=== PATIENT | male | born 1965 | race Caucasian/White ===

== ENCOUNTER 2016-09-17 13:08 | Inpatient (IN) | payer OTHER ==
[~2016-09-17] VITALS: Ht 195.6 cm; Wt 136.5 kg
[2016-09-17 13:53] VITALS: BP 151/91
--- NOTE | 2016-09-17 15:10 | NUR ---
Edwin lux in [facility] - 09/17/16 at 1511 by JUAN MANUEL Patient ambulated to bed 4 at this time.
--- NOTE | 2016-09-17 15:10 | NUR ---
Patient ambulated to bed 4 at this time.
--- NOTE | 2016-09-17 15:10 | NUR ---
Patient ambulated to bed 5 at this time.
--- NOTE | 2016-09-17 15:12 | NUR ---
51/M BIB SELF C/o redness swelling to left side of upper face cellulitis x 6 days pt visited dentist today, was told is not dental related. DENIES N/V/D; SKIN IS PINK/WARM/DRY; AAOX4 WITH EVEN AND STEADY GAIT; LUNGS CLEAR BL; HR EVEN AND REGULAR; PT DENIES ANY FEVER, CP, SOB, OR COUGH AT THIS TIME; PATIENT STATES PAIN OF 0/10 AT THIS TIME; VSS; PATIENT POSITIONED FOR COMFORT; HOB ELEVATED; BEDRAILS UP X2; BED DOWN. ER MD MADE AWARE OF PT STATUS.
--- NOTE | 2016-09-17 16:11 | NUR ---
ER MD DR GARCIA EVALUATING PT AT BEDSIDE.
[2016-09-17] MEDS ORDERED: cefTRIAXone 1,000 MG in DEXT 5% MINI-BAG PLUS 50 ML IV ONE (16:15)
[2016-09-17] MEDS ORDERED: NACL 0.9% 1,000 ML IV SCH (16:15)
--- NOTE | 2016-09-17 16:22 | NUR ---
X RAY AT BEDSIDE
[2016-09-17] MEDS ORDERED: cefTRIAXone 1,000 MG VIAL ONE (16:26)
--- NOTE | 2016-09-17 16:29 | NUR ---
EKG AT BEDSIDE
--- NOTE | 2016-09-17 16:36 | NUR ---
LAB AT BEDSIDE.
--- NOTE | 2016-09-17 16:36 | NUR ---
INSERTED IV CATH NO 20 LFA BY RN CA; PT TOLERATED PROCEDURE WELL. IV PATENT, INTACT.
--- NOTE | 2016-09-17 17:03 | NUR ---
PT C/O PAIN L BRANDYN 09/16; NOTIFIED ER MD DR GARCIA. Addendum: 09/17/16 at 1721 by [email or web address] ADMINISTERED MORPHINE 4 MG IV ORDER FOR PAIN.
[2016-09-17 17:05] LABS: BASOPHILS # (AUTO) 0.1 K/uL (0.00-0.22); BASOPHILS % (AUTO) 1.3 % (0.0-2.0); EOSINOPHILS # (AUTO) 0.1 K/uL (0-0.4); EOSINOPHILS % (AUTO) 1.6 % (0.0-4.0); HEMATOCRIT 44.3 % (36-52); HEMOGLOBIN 14.3 g/dL (12.0-18.0); LYMPHOCYTES # (AUTO) 1.1 K/uL (2.0-11.5); LYMPHOCYTES % (AUTO) 11.4 % (20.5-51.1); MEAN CORPUSCULAR HEMOGLOBIN 30 pg (27-31); MEAN CORPUSCULAR HGB CONC 32 g/dL (33-37); MEAN CORPUSCULAR VOLUME 92 fL (80-94); MONOCYTES # (AUTO) 0.7 K/uL (0.8-1.0); MONOCYTES % (AUTO) 7.5 % (1.7-9.3); NEUTROPHILS # (AUTO) 7.3 K/uL (1.8-7.7); NEUTROPHILS % (AUTO) 78.2 % (42.2-75.2); PLATELET COUNT (AUTO) 218 K/uL (140-450); RED BLOOD CELL COUNT(AUTO) 4.85 MIL/uL (4.20-6.10); RED CELL DISTRIBUTION WIDTH 13.2 % (11.6-13.7); WHITE BLOOD COUNT (AUTO) 9.3 K/uL (4.8-10.8)
[2016-09-17] MEDS ORDERED: MORPHINE SULFATE 4 MG/ML SYR IVP ONE (17:10)
[2016-09-17 17:11] LABS: ANION GAP 17.1 (8-16); CALCIUM 8.9 mg/dL (8.5-10.1); CARBON DIOXIDE 23.9 mmol/L (21-32); CREATININE 0.9 mg/dL (0.7-1.3)
[2016-09-17 17:16] LABS: PARTIAL THROMBOPLASTIN TIME 28.8 secs (22-35.6); PROTHROMBIN TIME 10.3 secs (10.8-13.4)
[2016-09-17 17:19] LABS: ALBUMIN 4.2 g/dL (3.4-5.0); LACTIC ACID 1.8 mmol/L (0.4-2.0); TOTAL BILIRUBIN 1.2 mg/dL (0.0-1.0)
--- NOTE | 2016-09-17 17:22 | NUR ---
L CHEEK PAIN 10.Patient appears to be resting comfortably in bed. Vital Signs within normal limits. Respirations even and unlabored. WILL CONTINUE TO MONITOR.
[2016-09-17] MEDS: NACL 0.9% 1,000 ML IV SCH (17:42)
[2016-09-17] MEDS ORDERED: ONDANSETRON 4 MG/2 ML VIAL IVP PRN (17:45)
[2016-09-17] MEDS ORDERED: ACETAMINOPHEN 325 MG TAB PO PRN (17:45)
[2016-09-17] MEDS ORDERED: MORPHINE SULFATE 4 MG/ML SYR IVP PRN (17:45)
[2016-09-17] MEDS ORDERED: MORPHINE SULFATE 2 MG/ML SYR IVP PRN (17:45)
--- NOTE | 2016-09-17 18:00 | NUR ---
DR ROSE EVALUATING PT AT BEDSIDE.
--- NOTE | 2016-09-17 18:12 | NUR ---
GAVE REPORT TO ANGLE RASHID.
--- NOTE | 2016-09-17 18:25 | NUR ---
PT CANT'T REMEMBER HOW MANY MG OG ZOLOFT & BACTRIM.
--- NOTE | 2016-09-17 18:26 | NUR ---
Patient will be admitted to care of DR EVERETT. Admited to MS. Will go to [id number]. Belongings list completed. Report to ANGLE RASHID.
--- NOTE | 2016-09-17 18:46 | NUR ---
RECEIVED REPORT FROM SABA BARBOUR, PT ARRIVED ON UNIT AWAKE AND ALERT, NO SIGNS OF ACUTE DISTRESS. BOWEL SOUNDS ACTIVE IN ALL 4 QUADRANTS. BOWEL AND BLADDER CONTINENCE. SKIN INTACT WITH LEFT FACE REDNESS. AMBULATORY WITH BRP. IV PATENT AND ASYMPTOMATIC. COMPLAINT OF PAIN 7/10 IN LEFT SIDE OF FACE, RECEIVED MORPHINE IN THE ER. BED IN LOW POSITION WITH BILATERAL HALF SIDE RAILS UP, CALL LIGHT WITHIN REACH. ORIENTED TO HOSPITAL AND UNIT, PT VERBALIZED UNDERSTANDING.
--- NOTE | 2016-09-17 19:15 | NUR ---
PT AWAKE AND ALERT, NO SIGNS OF ACUTE DISTRESS. ENDORSED TO PRIMARY OPERATOR NURSE FOR CONTINUITY OF CARE.
[2016-09-17 19:16] VITALS: BP 137/78
--- NOTE | 2016-09-17 19:16 | NUR ---
Admitted from ER TO [facility] , with chief complaint of SWELLING AND REDNESS OF LEFT SIDE OF FACE , 51 y/o ,Male, Cooperative, AWAKE, A/OX4. RESPIRATION EVEN AND UNLABORED, ABDOMEN SOFT, WITH POSITIVE BOWEL SOUNDS ON ALL QUADRANTS. STATED WITH SLIGHT DIFFICULTY SWALLOWING BUT ABLE TO SWALLOW WELL FOOD. AMBULATORY TO . HEAD TO TOE ASSESSMENT DONE WITH CHARGE NURSE PAOLA, SKIN INTACT. PAIN IN LEFT SIDE OF FACE 2/10, WILL MEDICATE ORDERED. oriented to call light, bed, phone,television, bathroom, smoking policy,visiting hours, procedures, ID bracelet on. Belongings list checked.
[2016-09-17 20:00] VITALS: BP 136/74
--- NOTE | 2016-09-17 20:00 | NUR ---
Patient's Plan of Care was discussed and reviewed with ACUTE COORDINATOR: KISHORE
[2016-09-17] MEDS ORDERED: CLINDAMYCIN 600 MG/4 ML VIAL ONE (21:13)
--- NOTE | 2016-09-17 21:30 | NUR ---
TRANSFERRED TO ROOM FOR ISOLATION, WITH HISTORY OF MRSA, WOUND.
[2016-09-17] MEDS: CLINDAMYCIN 600 MG in DEXTROSE 5% 50 ML IV SCH (21:36)
[2016-09-17] MEDS ORDERED: ZOLPIDEM 5 MG TAB PO PRN (23:25)
[2016-09-18] VITALS: BP 134/72
--- NOTE | 2016-09-18 | NUR ---
SLEEPING COMFORTABLY IN BED.
--- NOTE | 2016-09-18 03:00 | NUR ---
NO SIGNS OF DISCOMFORT NOTED. STILL SLEEPING IN BED.
[2016-09-18 04:52] VITALS: BP 120/75
[2016-09-18] MEDS: NACL 0.9% 1,000 ML IV SCH ×3 (05:21→23:42)
[2016-09-18] MEDS: CLINDAMYCIN 600 MG in DEXTROSE 5% 50 ML IV SCH ×3 (05:21→20:34)
[2016-09-18] MEDS ORDERED: CLINDAMYCIN 600 MG/4 ML VIAL ONE (05:23)
[2016-09-18 06:16] LABS: BASOPHILS # (AUTO) 0.1 K/uL (0.00-0.22); BASOPHILS % (AUTO) 1.8 % (0.0-2.0); EOSINOPHILS # (AUTO) 0.2 K/uL (0-0.4); EOSINOPHILS % (AUTO) 2.8 % (0.0-4.0); HEMATOCRIT 40.5 % (36-52); HEMOGLOBIN 13.3 g/dL (12.0-18.0); LYMPHOCYTES # (AUTO) 0.9 K/uL (2.0-11.5); LYMPHOCYTES % (AUTO) 16.4 % (20.5-51.1); MEAN CORPUSCULAR HEMOGLOBIN 30 pg (27-31); MEAN CORPUSCULAR HGB CONC 33 g/dL (33-37); MEAN CORPUSCULAR VOLUME 92 fL (80-94); MONOCYTES # (AUTO) 0.7 K/uL (0.8-1.0); MONOCYTES % (AUTO) 11.6 % (1.7-9.3); NEUTROPHILS # (AUTO) 3.9 K/uL (1.8-7.7); NEUTROPHILS % (AUTO) 67.4 % (42.2-75.2); PLATELET COUNT (AUTO) 163 K/uL (140-450); RED BLOOD CELL COUNT(AUTO) 4.41 MIL/uL (4.20-6.10); WHITE BLOOD COUNT (AUTO) 5.8 K/uL (4.8-10.8)
--- NOTE | 2016-09-18 06:55 | NUR ---
CONDITION REMAIN STABLE.COMPLAINT OF PAIN IN THE FACE, ATTENDED PROMPTLY. MEDICATED ORDERED. ANTIBIOTICS DUE FOR THE SHIFT GIVEN BY RN, TOLERATED WELL. ABLE TO SLEPT WELL. WILL ENDORSE TO AM NURSE FOR CONTINUITY OF SHIFT.
[2016-09-18 07:08] LABS: ALBUMIN 3.4 g/dL (3.4-5.0); ANION GAP 12.3 (8-16); CALCIUM 7.9 mg/dL (8.5-10.1); CARBON DIOXIDE 25.8 mmol/L (21-32); CREATININE 0.8 mg/dL (0.7-1.3); POTASSIUM 4.1 mmol/L (3.5-5.1); TOTAL PROTEIN, SERUM 6.9 g/dL (6.4-8.2)
--- NOTE | 2016-09-18 07:25 | NUR ---
ENDORSED TO ANGLE HARDY FOR CONTINUITY OF CARE.
--- NOTE | 2016-09-18 07:30 | NUR ---
REPORT RECEIVED FROM RUBY ON RAILS WEB DEVELOPER, PT AAOX4, RESP EVEN UNLABORED, SKIN WARM DRY COLOR WNL, PT DENIES ANY IMMEDIATE NEEDS, PLAN OF CARE DISCUSSED CALL GAVIRIA WITHIN REACH, WILL CONTINUE TO MONTIOR
[2016-09-18 08:00] VITALS: BP 123/78
--- NOTE | 2016-09-18 08:48 | NUR ---
PATIENT HAS BEEN SCREENED AND CATEGORIZED LOW NUTRITION RISK. PATIENT WILL BE SEEN WITHIN 7 DAYS OF ADMISSION. 09/24/[address]
[2016-09-18] MEDS ORDERED: HYDROcodone/APAP 5/325 MG 1 TAB TAB PO PRN (09:20)
[2016-09-18] MEDS ORDERED: HYDROcodone/APAP 10/325 MG 1 TAB TAB PO PRN (09:20)
[2016-09-18] MEDS: NICOTINE TRANSD SYS 14 MG/24 HR PATCH TD SCH (09:39)
[2016-09-18] MEDS: ENOXAPARIN 40 MG/0.4 ML SYR SUBQ SCH (09:47)
[2016-09-18] MEDS: MORPHINE SULFATE 2 MG/ML SYR IVP PRN ×3 (10:12→20:42)
--- NOTE | 2016-09-18 11:00 | NUR ---
PT TO CT IN WHEELCHAIR
--- NOTE | 2016-09-18 12:30 | NUR ---
PT FINISHDED WITH LUNCH, REQUESTS MORE SANDWITCH, KITCHEN CALLED, PT UP OUT OF BED WITHOUT PROBLEM TO BATHROOM WITH STEADY GAIT.
[2016-09-18] MEDS ORDERED: SERT25TA PO (13:23)
--- NOTE | 2016-09-18 13:50 | NUR ---
CM NOTE INITIAL REVIEW FAXED TO [facility] (FAX# [phone], ATTN: EUGENE #[phone]) AND [facility] (FAX# [phone], C: [phone])
[2016-09-18 16:00] VITALS: BP 105/62
--- NOTE | 2016-09-18 16:24 | NUR ---
PLAN OF CARE DISCUSSED AGAIN, PT VERBALIZED UNDERSTANDING, PAIN MED GIVEN PER PT REQUEST, LEFT CHEEK STILL WITH SWELLING, SKIN INTACT, WILL CONTINUE TO MONTOR
--- NOTE | 2016-09-18 19:30 | NUR ---
REPORT GIVEN TO DWARF TREE GROWER NURSE, PT IN STABLE CONDITION.
--- NOTE | 2016-09-18 19:31 | NUR ---
RECEIVED REPORT FROM AM SHIFT. PT AOX4. WITH RESPIRATIONS CLEAR AND UNLABORED. COMPLAINTS OF LEFT FACIAL PAIN. WITH AN IV ON THE LEFT FA 20 G, PATENT AND INTACT. DISCUSSED PLAN OF CARE WITH PT, VERBALIZED UNDERSTANDING. CALL LIGHT WITHIN REACH. WILL CONTINUE TO MONITOR.
--- NOTE | 2016-09-18 20:42 | NUR ---
DUE MEDS GIVEN. COMPLAINED OF LEFT CHEEK PAIN OF 8/10, OFFERED NORCO, BUT REFUSED AND WANTED MORPHINE INSTEAD. EDUCATED PT THAT THE NORCO WAS ORDERED FOR HIS PAIN SCALE AND THAT MORPHINE WAS FOR BREAKTHROUGH PAIN. PT STILL REFUSED. GAVE MORPHINE PRN.
[2016-09-19] VITALS: BP 99/53
--- NOTE | 2016-09-19 | NUR ---
PT SEEN SLEEPING. VS TAKEN, STABLE. NO S/S OF DISTRESS. NO COMPLAINTS OF PAIN AT THIS TIME. WILL CONTINUE TO MONITOR FOR CHANGES. CALL LIGHT WITHIN REACH.
--- NOTE | 2016-09-19 02:10 | NUR ---
SAW PT SLEEPING. NO S/S OF DISTRESS. WILL CONTINUE TO MONITOR. CALL LIGHT WITHIN REACH.
[2016-09-19] MEDS: CLINDAMYCIN 600 MG in DEXTROSE 5% 50 ML IV SCH ×2 (04:52→12:13)
--- NOTE | 2016-09-19 04:52 | NUR ---
PT SEEN ASLEEP. NO S/S OF DISTRESS. NO COMPLAINTS OF PAIN AT THIS TIME. DUE MEDS GIVEN. WILL CONTINUE TO MONITOR. NO S/S OF DISTRESS.
[2016-09-19] MEDS: NACL 0.9% 1,000 ML IV SCH ×2 (06:39→09:42)
--- NOTE | 2016-09-19 07:20 | NUR ---
ENDORSED TO AM NURSE FOR CONTINUITY OF CARE. PT IN STABLE CONDITION.
--- NOTE | 2016-09-19 07:25 | NUR ---
REPORT RECEIVED FROM RETAIL EVENT AND SALES ASSISTANT, PT RESTING WITH EYES CLOSED, RESP EVEN UNLABORED ON ROOM AIR IN NAD, SKIN WARM DRY COLOR WNL, LEFT SIDE OF FACE STILL WITH SWELLING AND REDNESS, SKIN INTACT, PT AROUSES EASILY BY VOICE, STATES PAIN IS LESS THIS MORNING AND MANAGEABLE, PT DECLINES PAIN MED, DENIES ANY IMMEDIATE NEEDS, PLAN OF CARE DISCUSSED, CALL GAVIRIA WITHIN REACH, SIDE RAILS UP, BED LOCKED IN LOW POSITION, WILL CONTINUE TO MONITOR.
[2016-09-19 07:59] VITALS: BP 110/80
[2016-09-19] MEDS: NICOTINE TRANSD SYS 14 MG/24 HR PATCH TD SCH (09:09)
[2016-09-19] MEDS: ENOXAPARIN 40 MG/0.4 ML SYR SUBQ SCH (09:14)
[2016-09-19] MEDS ORDERED: CLIN300C2 PO (10:03)
[2016-09-19] MEDS ORDERED: TRAM50TA94 PO (10:03)
[2016-09-19] MEDS ORDERED: SULF-58 PO (10:03)
--- NOTE | 2016-09-19 12:15 | NUR ---
CLINDAMYCIN INFUSION STARTED, WILL DC HOME WHEN DONE
[2016-09-19 12:48] VITALS: BP 122/72
--- NOTE | 2016-09-19 12:51 | NUR ---
DC INSTRUCTION AND RX GIVEN AND EXPLAINED TO PT, PT VERBALIZED FULL UNDERSTANDING, PT AWARE OF F/U WITH PRIMARY WITHIN 1-2WEEKS OR SOONER IF S/S OF INFECTION OR OTHER CONCERNS, PT VERBALIZED FULL UNDERSTANDING, AWAITING ANTIBIOTIC INFUSION TO COMPLETE FOR DC HOME.
--- NOTE | 2016-09-19 13:01 | NUR ---
IV DC'D, CATH TIP INTACT, BLEDING CONTROLLED, DC HOME NOW, PT UP AMBULATORY WITH STEADY GAIT, DECLINES NEED FOR WHEELCHAIR, ESCORTED OUT TO GO HOME VIA BUS.
--- NOTE | 2016-09-19 14:04 | NUR ---
CM NOTE CONCURRENT REVIEW FAXED TO [facility] (FAX# [phone], ATTN: EUGENE #[phone]) AND [facility] (FAX# [phone], C: [phone])
== END 2016-09-19 13:02 | disposition home or self-care (01) | DRG 383 ==
LOC: MED 13:08 → MTU 17:42
PROVIDERS: ADMIT Hospitalist; ATTEND Hospitalist
DX: L03.211 Cellulitis of face (principal); F17.200 Nicotine dependence, unspecified, uncomplicated; L73.9 Follicular disorder, unspecified; Z86.14 Personal history of Methicillin resistant Staphylococcus aureus infection; Z90.49 Acquired absence of other specified parts of digestive tract; Z87.898 Personal history of other specified conditions
CPT/HCPCS: 36415; 70486; 71010; 80053; 82550; 83605; 83880; 84484; 85025; 85610; 85730; 87040; 87081; 93005; 96365; 96375; 99285; J0696; J1650; J2270; J3490; J7030; J7060; Q0092

== ENCOUNTER 2023-04-18 17:43 | Emergency (ER) | payer OTHER ==
[~2023-04-18] VITALS: Ht 195.6 cm; Wt 161.0 kg
[~2023-04-18 17:43] MED LIST: CLIN300C2 PO; SERT25TA PO; SULF-58 PO; TRAM-748 PO
[2023-04-18 18:38] VITALS: BP 112/72; PULSE 92; RESP 18; TEMP 98.4; O2SAT 97
[2023-04-18 19:52] LABS: BASOPHILS # (AUTO) 0.1 K/uL (0.00-0.22); BASOPHILS % (AUTO) 0.7 % (0.0-2.0); EOSINOPHILS # (AUTO) 0.1 K/uL (0-0.4); EOSINOPHILS % (AUTO) 1.5 % (0.0-4.0); HEMATOCRIT 45.6 % (36-52); HEMOGLOBIN 15.3 g/dL (12.0-18.0); LYMPHOCYTES # (AUTO) 1.3 K/uL (2.0-11.5); LYMPHOCYTES % (AUTO) 17.6 % (20.5-51.1); MEAN CORPUSCULAR HEMOGLOBIN 30 pg (27-31); MEAN CORPUSCULAR HGB CONC 34 g/dL (33-37); MONOCYTES # (AUTO) 0.7 K/uL (0.8-1.0); MONOCYTES % (AUTO) 10.3 % (1.7-9.3); NEUTROPHILS % (AUTO) 69.9 % (42.2-75.2); PLATELET COUNT (AUTO) 251 K/uL (140-450); RED BLOOD CELL COUNT(AUTO) 5.06 MIL/uL (4.20-6.10); RED CELL DISTRIBUTION WIDTH 14.1 % (11.6-13.7); WHITE BLOOD COUNT (AUTO) 7.2 K/uL (4.8-10.8)
[2023-04-18 20:05] LABS: CALCIUM 9.2 mg/dL (8.5-10.1); CARBON DIOXIDE 26.3 mmol/L (21-32); CREATININE 1.1 mg/dL (0.6-1.3); POTASSIUM 4.3 mmol/L (3.5-5.1)
[2023-04-18 20:08] LABS: ACETAMINOPHEN 6.7 ug/ml (10-30); ALBUMIN 3.8 g/dL (3.4-5.0); BILIRUBIN,DIRECT 0.1 mg/dL (0.0-0.3); SALICYLATE 3.4 mg/dL (2.8-20.0); TOTAL BILIRUBIN 0.4 mg/dL (0.0-1.0); TOTAL PROTEIN, SERUM 8.4 g/dL (6.4-8.2)
[2023-04-18 20:12] LABS: APPEARANCE,URINE CLEAR (CLEAR); BILIRUBIN,URINE NEGATIVE (NEGATIVE); BLOOD, URINE NEGATIVE (NEGATIVE); COLOR,URINE YELLOW (YELLOW); LEUKOCYTE ESTERASE ,URINE NEGATIVE (NEGATIVE); NITRITE, URINE NEGATIVE (NEGATIVE); PROTEIN,URINE NEGATIVE (NEGATIVE); UGLUCOSE NEGATIVE (NEGATIVE); UROBILINOGEN,URINE 0.2 EU/dL (0.2 - 1)
[2023-04-18 20:35] LABS: AMPHETAMINE, URINE NEGATIVE ng/ml (NEG <=1000); BARBITURATE, URINE NEGATIVE ng/ml (NEG <=200); BENZODIAZEPINE, URINE POSITIVE ng/mL (NEG <=200); CANNABINOID, URINE NEGATIVE ng/mL (NEG <=50); COCAINE, URINE NEGATIVE ng/mL (NEG <=300); OPIATE, URINE POSITIVE ng/mL (NEG <=2000); PHENCYCLIDINE SCREEN,URINE NEGATIVE ng/mL (NEG <=25)
[2023-04-19 02:15] VITALS: O2SAT 97
[2023-04-19 05:27] VITALS: O2SAT 97
[2023-04-19 08:41] VITALS: O2SAT 98
[2023-04-19] MEDS ORDERED: NICOTINE TRANSD SYS 14 MG/24 HR PATCH TD ONE (10:30)
[2023-04-19] MEDS: NICOTINE TRANSD SYS 21 MG/24 HR PATCH TD SCH (10:56)
[2023-04-19] MEDS: HYDROXYZINE HYDROCHLORIDE 25 MG TAB PO ONE (12:08)
[2023-04-19 14:21] VITALS: O2SAT 94
[2023-04-19 17:07] VITALS: O2SAT 94
[2023-04-19 23:45] VITALS: BP 156/95; PULSE 100; RESP 20; TEMP 98; O2SAT 98
== END 2023-04-19 23:47 | disposition short-term general hospital (02) ==
LOC: MED 17:43
DX: R45.851 Suicidal ideations (principal); Z20.822 Contact with and (suspected) exposure to COVID-19; I10 Essential (primary) hypertension; F32.9 Major depressive disorder, single episode, unspecified; F17.210 Nicotine dependence, cigarettes, uncomplicated; Z79.899 Other long term (current) drug therapy; Z79.2 Long term (current) use of antibiotics; Z86.718 Personal history of other venous thrombosis and embolism
CPT/HCPCS: 36415; 80048; 80076; 80305; 81003; 85025; 87426; 93005; 99285; G0480; G0482

== ENCOUNTER 2023-05-09 13:49 | Observation (INO) | payer OTHER ==
[~2023-05-09] VITALS: Ht 193 cm; Wt 131.5 kg
[2023-05-09 13:52] VITALS: BP 150/98; PULSE 100; RESP 20; TEMP 98.1; O2SAT 96
[2023-05-09 15:04] LABS: BASOPHILS % (AUTO) 0.4 % (0.0-2.0); EOSINOPHILS # (AUTO) 0.1 K/uL (0-0.4); EOSINOPHILS % (AUTO) 1.3 % (0.0-4.0); HEMATOCRIT 38.3 % (36-52); LYMPHOCYTES # (AUTO) 0.8 K/uL (2.0-11.5); LYMPHOCYTES % (AUTO) 11.7 % (20.5-51.1); MEAN CORPUSCULAR HEMOGLOBIN 30 pg (27-31); MEAN CORPUSCULAR HGB CONC 34 g/dL (33-37); MEAN CORPUSCULAR VOLUME 89.5 fL (80-94); MONOCYTES # (AUTO) 0.7 K/uL (0.8-1.0); MONOCYTES % (AUTO) 9.9 % (1.7-9.3); NEUTROPHILS # (AUTO) 5.3 K/uL (1.8-7.7); NEUTROPHILS % (AUTO) 76.7 % (42.2-75.2); PLATELET COUNT (AUTO) 273 K/uL (140-450); RED BLOOD CELL COUNT(AUTO) 4.29 MIL/uL (4.20-6.10); RED CELL DISTRIBUTION WIDTH 14.1 % (11.6-13.7); WHITE BLOOD COUNT (AUTO) 6.9 K/uL (4.8-10.8)
[2023-05-09 15:13] LABS: ANION GAP 14.1 (8-16); CALCIUM 8.5 mg/dL (8.5-10.1); CARBON DIOXIDE 27.2 mmol/L (21-32); CREATININE 0.8 mg/dL (0.6-1.3); POTASSIUM 3.3 mmol/L (3.5-5.1)
[2023-05-09 15:16] LABS: INR 1.05 (0.8-1.2)
[2023-05-09 15:22] LABS: ALANINE AMINOTRANSFERASE 46 U/L (12-78); ALBUMIN 3.3 g/dL (3.4-5.0); ALKALINE PHOSPHATASE 151 U/L (50-136); ASPARTATE AMINOTRANSFERASE 31 U/L (15-37); BILIRUBIN,DIRECT 0.2 mg/dL (0.0-0.3); TOTAL BILIRUBIN 0.5 mg/dL (0.0-1.0); TOTAL PROTEIN, SERUM 7.4 g/dL (6.4-8.2)
[2023-05-09 15:23] LABS: LACTIC ACID 2.1 mmol/L (0.4-2.0)
[2023-05-09 15:49] LABS: APPEARANCE,URINE CLEAR (CLEAR); BILIRUBIN,URINE NEGATIVE (NEGATIVE); BLOOD, URINE NEGATIVE (NEGATIVE); COLOR,URINE YELLOW (YELLOW); LEUKOCYTE ESTERASE ,URINE NEGATIVE (NEGATIVE); NITRITE, URINE NEGATIVE (NEGATIVE); PH,URINE 6.5 (5.0-9.0); PROTEIN,URINE NEGATIVE (NEGATIVE); UGLUCOSE NEGATIVE (NEGATIVE); UROBILINOGEN,URINE 0.2 EU/dL (0.2 - 1)
[2023-05-09 15:56] LABS: FLU A ANTIGEN negative (NEGATIVE); FLU B ANTIGEN NEGATIVE (NEGATIVE)
[2023-05-09] MEDS: LORazepam 2 MG/ML VIAL IVP ONE ×2 (17:05→19:06)
[2023-05-09] MEDS: NACL 0.9% 1,000 ML IV ONE ×2 (17:06→17:07)
[2023-05-09] MEDS ORDERED: AZITHROMYCIN 500 MG INJ VIAL IV ONE (18:21)
[2023-05-09] MEDS ORDERED: cefTRIAXone 2,000 MG VIAL ONE (18:21)
[2023-05-09] MEDS: cefTRIAXone 2,000 MG in DEXTROSE 5% 100 ML IV ONE (18:28)
[2023-05-09] MEDS: AZITHROMYCIN 500 MG in DEXTROSE 5% 250 ML IV ONE (19:39)
[2023-05-09 22:40] LABS: AMPHETAMINE, URINE POSITIVE ng/ml (NEG <=1000); BARBITURATE, URINE NEGATIVE ng/ml (NEG <=200); BENZODIAZEPINE, URINE NEGATIVE ng/mL (NEG <=200); CANNABINOID, URINE POSITIVE ng/mL (NEG <=50); COCAINE, URINE NEGATIVE ng/mL (NEG <=300); OPIATE, URINE POSITIVE ng/mL (NEG <=2000); PHENCYCLIDINE SCREEN,URINE NEGATIVE ng/mL (NEG <=25)
[2023-05-09] MEDS ORDERED: MAG SULF 2000 MG/WATER PREMIX 50 ML IV PRN (22:40)
[2023-05-09] MEDS ORDERED: ONDANSETRON 4 MG/2 ML VIAL IVP PRN (22:40)
[2023-05-09] MEDS ORDERED: POTASSIUM CHLORIDE 10 MEQ TABER PO PRN (22:40)
[2023-05-09] MEDS ORDERED: ACETAMINOPHEN 325 MG TAB PO PRN (22:40)
[2023-05-09] MEDS ORDERED: ZOLPIDEM 5 MG TAB PO PRN (22:40)
[2023-05-09] MEDS ORDERED: KCL 20 MEQ IN 100 mL PREMIX 200 ML IV PRN (22:40)
[2023-05-09] MEDS ORDERED: CLONIDINE HYDROCHLORIDE 0.1 MG TAB PO PRN (22:45)
[2023-05-09] MEDS ORDERED: HYDR-5080 PO (22:54)
[2023-05-09] MEDS ORDERED: LOSA-272 PO (22:54)
[2023-05-10] VITALS (7 sets, daily range): BP systolic 124–153; BP diastolic 67–88; PULSE 84–99; RESP 20–22; TEMP 97–98.9; O2SAT 90–98
[2023-05-10] MEDS: ALBUTEROL 0.083% 2.5 MG/3 ML NEBU INH PRN (00:26)
[2023-05-10] MEDS: LORazepam 1 MG TAB PO PRN (02:44)
[2023-05-10] MEDS: MEDS-TO-BEDS MC SCH (08:01)
[2023-05-10] MEDS: ENOXAPARIN 40 MG/0.4 ML SYR SUBQ SCH (08:05)
[2023-05-10] MEDS: MORPHINE SULFATE 4 MG/ML SYR IVP PRN (09:12)
[2023-05-10 09:37] LABS: BASOPHILS % (AUTO) 0.6 % (0.0-2.0); EOSINOPHILS # (AUTO) 0.1 K/uL (0-0.4); EOSINOPHILS % (AUTO) 1.7 % (0.0-4.0); HEMATOCRIT 40.1 % (36-52); HEMOGLOBIN 13.8 g/dL (12.0-18.0); LYMPHOCYTES # (AUTO) 0.7 K/uL (2.0-11.5); LYMPHOCYTES % (AUTO) 11.8 % (20.5-51.1); MEAN CORPUSCULAR HEMOGLOBIN 31 pg (27-31); MEAN CORPUSCULAR HGB CONC 34 g/dL (33-37); MEAN CORPUSCULAR VOLUME 90.1 fL (80-94); MONOCYTES # (AUTO) 0.5 K/uL (0.8-1.0); MONOCYTES % (AUTO) 9.2 % (1.7-9.3); NEUTROPHILS # (AUTO) 4.3 K/uL (1.8-7.7); NEUTROPHILS % (AUTO) 76.7 % (42.2-75.2); PLATELET COUNT (AUTO) 243 K/uL (140-450); RED BLOOD CELL COUNT(AUTO) 4.45 MIL/uL (4.20-6.10); RED CELL DISTRIBUTION WIDTH 14.6 % (11.6-13.7); WHITE BLOOD COUNT (AUTO) 5.6 K/uL (4.8-10.8)
[2023-05-10 10:09] LABS: ANION GAP 13.6 (8-16); CALCIUM 8.6 mg/dL (8.5-10.1); CARBON DIOXIDE 22.6 mmol/L (21-32); CREATININE 0.7 mg/dL (0.6-1.3); POTASSIUM 4.2 mmol/L (3.5-5.1)
[2023-05-10] MEDS ORDERED: LEVO750T75 PO (15:10)
[2023-05-10] MEDS ORDERED: ALBU0.0912 IH (15:11)
[2023-05-10] MEDS: HYDROcodone/APAP 5/325 MG 1 TAB TAB PO PRN (15:38)
[2023-05-10] MEDS ORDERED: AZITHROMYCIN 500 MG in DEXTROSE 5% 250 ML IV SCH (21:00)
== END 2023-05-10 16:00 | disposition home or self-care (01) ==
LOC: MED 13:49 → INTOOBSV 22:37 → MTU 22:37
PROVIDERS: ADMIT Internal Medicine; ATTEND Internal Medicine
DX: A41.9 Sepsis, unspecified organism (principal); Z20.822 Contact with and (suspected) exposure to COVID-19; R65.20 Severe sepsis without septic shock; J96.01 Acute respiratory failure with hypoxia; E87.20 Acidosis, unspecified; E44.0 Moderate protein-calorie malnutrition; E87.1 Hypo-osmolality and hyponatremia; I10 Essential (primary) hypertension; R00.0 Tachycardia, unspecified; F19.90 Other psychoactive substance use, unspecified, uncomplicated; F12.90 Cannabis use, unspecified, uncomplicated; F17.210 Nicotine dependence, cigarettes, uncomplicated; Z79.899 Other long term (current) drug therapy; Z68.35 Body mass index [BMI] 35.0-35.9, adult
CPT/HCPCS: 36415; 71045; 71275; 80048; 80076; 80305; 81003; 83605; 83735; 83880; 84484; 85025; 85379; 85610; 85730; 87040; 87081; 87086; 87426; 87804; 94640; 96361; 96365; 96367; 96375; 96376; 99291; G0378; J0456; J0696; J2060; J2270; J7613; Q9967; J7060

== ENCOUNTER 2023-06-14 20:54 | Inpatient (IN) | payer OTHER ==
[~2023-06-14] VITALS: Ht 195.6 cm; Wt 160.6 kg
[~2023-06-14 20:54] MED LIST changes: +ALBU0.0912 IH; -CLIN300C2 PO; +LEVO750T75 PO; -SULF-58 PO; -TRAM-748 PO
[2023-06-14 21:25] VITALS: BP 129/66; PULSE 98; RESP 18; TEMP 97.7; O2SAT 96
[2023-06-15] VITALS (8 sets, daily range): BP systolic 95–103; BP diastolic 47–60; PULSE 77–89; RESP 19–20; TEMP 97–98; O2SAT 94–98
[2023-06-15 00:22] LABS: BASOPHILS # (AUTO) 0.1 K/uL (0.00-0.22); BASOPHILS % (AUTO) 0.9 % (0.0-2.0); EOSINOPHILS # (AUTO) 0.2 K/uL (0-0.4); EOSINOPHILS % (AUTO) 2.9 % (0.0-4.0); HEMATOCRIT 41.7 % (36-52); LYMPHOCYTES # (AUTO) 1.1 K/uL (2.0-11.5); MEAN CORPUSCULAR HEMOGLOBIN 30 pg (27-31); MEAN CORPUSCULAR HGB CONC 34 g/dL (33-37); MEAN CORPUSCULAR VOLUME 90.7 fL (80-94); MONOCYTES # (AUTO) 0.6 K/uL (0.8-1.0); MONOCYTES % (AUTO) 9.4 % (1.7-9.3); NEUTROPHILS % (AUTO) 67.8 % (42.2-75.2); PLATELET COUNT (AUTO) 279 K/uL (140-450); RED CELL DISTRIBUTION WIDTH 14.2 % (11.6-13.7); WHITE BLOOD COUNT (AUTO) 5.9 K/uL (4.8-10.8)
[2023-06-15] MEDS: MORPHINE SULFATE 4 MG/ML SYR IVP ONE (00:23)
[2023-06-15 00:29] LABS: ANION GAP 15.7 (8-16); CARBON DIOXIDE 24.7 mmol/L (21-32); POTASSIUM 3.4 mmol/L (3.5-5.1)
[2023-06-15 00:38] LABS: ALANINE AMINOTRANSFERASE 45 U/L (12-78); ALKALINE PHOSPHATASE 176 U/L (50-136); ASPARTATE AMINOTRANSFERASE 27 U/L (15-37); BILIRUBIN,DIRECT 0.2 mg/dL (0.0-0.3); TOTAL BILIRUBIN 0.7 mg/dL (0.0-1.0); TOTAL PROTEIN, SERUM 7.6 g/dL (6.4-8.2)
[2023-06-15] MEDS: FUROSEMIDE 20 MG/2 ML VIAL IVP ONE (01:29)
[2023-06-15 01:32] LABS: APPEARANCE,URINE CLEAR (CLEAR); BILIRUBIN,URINE NEGATIVE (NEGATIVE); BLOOD, URINE NEGATIVE (NEGATIVE); COLOR,URINE YELLOW (YELLOW); LEUKOCYTE ESTERASE ,URINE NEGATIVE (NEGATIVE); NITRITE, URINE NEGATIVE (NEGATIVE); PROTEIN,URINE TRACE (NEGATIVE); UGLUCOSE NEGATIVE (NEGATIVE); UROBILINOGEN,URINE 0.2 EU/dL (0.2 - 1)
[2023-06-15 01:33] LABS: BACTERIA,URINE 0-2 /HPF (None Seen); RBC,URINE 0-5 /HPF (0-5); SQUAMOUS EPITHELIAL CELL,UR 0-3 (FEW) /LPF (0-3 (FEW)); WBC,URINE 0 /HPF (0-5)
[2023-06-15 01:34] LABS: MUCUS,URINE None Seen /LPF (None Seen)
[2023-06-15] MEDS ORDERED: ACETAMINOPHEN 325 MG TAB PO PRN (02:25)
[2023-06-15] MEDS ORDERED: ONDANSETRON 4 MG/2 ML VIAL IVP PRN (02:25)
[2023-06-15] MEDS ORDERED: RISP0.5T3 PO (02:33)
[2023-06-15] MEDS ORDERED: MIRT-120 PO (02:33)
[2023-06-15] MEDS ORDERED: QUET25TA PO (02:33)
[2023-06-15 07:24] LABS: AMPHETAMINE, URINE POSITIVE ng/ml (NEG <=1000); BENZODIAZEPINE, URINE POSITIVE ng/mL (NEG <=200); CANNABINOID, URINE POSITIVE ng/mL (NEG <=50); OPIATE, URINE POSITIVE ng/mL (NEG <=2000)
[2023-06-15 07:25] LABS: BARBITURATE, URINE NEGATIVE ng/ml (NEG <=200); COCAINE, URINE NEGATIVE ng/mL (NEG <=300); PHENCYCLIDINE SCREEN,URINE NEGATIVE ng/mL (NEG <=25)
[2023-06-15] MEDS: LOSARTAN 50 MG TAB PO SCH (09:01)
[2023-06-15] MEDS: SERTRALINE 50 MG TAB PO SCH (09:01)
[2023-06-15] MEDS: MEDS-TO-BEDS MC SCH (21:47)
[2023-06-16] VITALS: BP 98/57; PULSE 67; PULSE 80; RESP 18; TEMP 97.7; O2SAT 99
[2023-06-16 04:00] VITALS: BP 100/54; PULSE 77; PULSE 81; RESP 16; TEMP 97.6; O2SAT 95
[2023-06-16 08:00] VITALS: BP 135/68; PULSE 80; RESP 19; TEMP 97.7; O2SAT 98
[2023-06-16 08:20] LABS: BASOPHILS % (AUTO) 0.7 % (0.0-2.0); EOSINOPHILS # (AUTO) 0.1 K/uL (0-0.4); EOSINOPHILS % (AUTO) 2.1 % (0.0-4.0); HEMATOCRIT 40.3 % (36-52); HEMOGLOBIN 13.3 g/dL (12.0-18.0); LYMPHOCYTES # (AUTO) 0.7 K/uL (2.0-11.5); LYMPHOCYTES % (AUTO) 16.6 % (20.5-51.1); MEAN CORPUSCULAR HEMOGLOBIN 30 pg (27-31); MEAN CORPUSCULAR HGB CONC 33 g/dL (33-37); MEAN CORPUSCULAR VOLUME 91.3 fL (80-94); MONOCYTES # (AUTO) 0.4 K/uL (0.8-1.0); MONOCYTES % (AUTO) 9.1 % (1.7-9.3); NEUTROPHILS # (AUTO) 3.1 K/uL (1.8-7.7); NEUTROPHILS % (AUTO) 71.5 % (42.2-75.2); PLATELET COUNT (AUTO) 217 K/uL (140-450); RED BLOOD CELL COUNT(AUTO) 4.41 MIL/uL (4.20-6.10); RED CELL DISTRIBUTION WIDTH 14.3 % (11.6-13.7); WHITE BLOOD COUNT (AUTO) 4.3 K/uL (4.8-10.8)
[2023-06-16] MEDS: FUROSEMIDE 40 MG/4 ML VIAL IVP SCH (08:33)
[2023-06-16 08:54] LABS: ANION GAP 9.7 (8-16); CALCIUM 8.6 mg/dL (8.5-10.1); CARBON DIOXIDE 30.8 mmol/L (21-32); CREATININE 0.8 mg/dL (0.6-1.3); POTASSIUM 4.5 mmol/L (3.5-5.1)
== END 2023-06-16 12:25 | disposition left against medical advice (07) | DRG 194 ==
LOC: MED 20:54 → MTU 06-15 02:27 → OBSVTOIN 06-15 16:27
PROVIDERS: ADMIT Hospitalist; ATTEND Hospitalist
DX: I11.0 Hypertensive heart disease with heart failure (principal); E11.9 Type 2 diabetes mellitus without complications; E87.6 Hypokalemia; F15.99 Other stimulant use, unspecified with unspecified stimulant-induced disorder; F11.20 Opioid dependence, uncomplicated; R33.9 Retention of urine, unspecified; Z79.899 Other long term (current) drug therapy; Z90.49 Acquired absence of other specified parts of digestive tract; I50.33 Acute on chronic diastolic (congestive) heart failure
CPT/HCPCS: 36415; 70450; 71045; 80048; 80076; 80305; 81001; 83735; 83880; 84484; 85025; 87081; 93005; 96374; 96375; 99285; G0482; J1940; J2270